=== PATIENT | male | born 1990 | race Hispanic/Latino ===

== ENCOUNTER 2016-07-05 21:36 | Emergency (ER) | payer OTHER ==
[~2016-07-05] VITALS: Ht 160 cm; Wt 57.6 kg
[~2016-07-05 21:36] MED LIST: ABILIFY 10 MG10 MG PO; ABILIFY10 M1 PO; AMLODIPINE10 MG PO; BENADRYL25 MG PO; DIPHENHYDRAMINE50 M1 PO; FERROUS SULFAT325 M1 PO; GABAPENTIN300 MG PO; GABAPENTIN400 MG PO; IMODIUM2 MG PO; LANTUS SOLOS100 U/ML SC; LANTUS100 U/ML SC; LASIX20 MG PO; LEVEMIR 10100 UNITS/ SC; LEVEMIR FLEX100 U/ML SC; LEVEMIR100 UNIT/1 SC; LISINOPRIL10 MG PO; LISINOPRIL40 M1 PO; LISINOPRIL40 MG PO; LOSARTAN POTASS50 M1 PO; LYRICA75 M1 PO; LYRICA75 MG PO; NEURONTIN400 M1 PO; NEURONTIN800 M1 PO; NEXIUM 40MG40 MG PO; NEXIUM40 M1 PO; NOVOLOG 10300 UNITS/; NOVOLOG 10300 UNITS/ SC; NOVOLOG MI300 UNITS/ SC; NOVOLOG100 U/ML SC; NOVOLOG100 UNIT/2 SC; ONDANSETRON2 MG/ML IV; OXY IR5 MG PO; OXYCONTIN10 MG PO; PERCOCET 10-321 EACH PO; PERCOCET 325 MG1 TA2 PO; PERCOCET 325 MG1 TAB PO; PERCOCET 5-3251 EACH PO; PRILOSEC OTC20 MG PO; PRINIVIL 5MG5 MG PO; TOPROL XL25 M1 PO; VIBRAMYCIN100 MG PO; ZOFRAN 4 MG TABL4 MG PO; ZOFRAN ODT4 M1 SL; ZOFRAN ODT4 MG PO; ZOFRAN ODT4 MG SL; ZOFRAN4 M1 SL
--- NOTE | 2016-07-05 21:41 | ED AMS/SEIZURE/WEAK/DIZZY ---
History of Present Illness General Chief Complaint: General Adult Stated Complaint: HIGH BLOOD SUGAR PER PT Source: patient Exam Limitations: no limitations Vital Signs & Intake/Output Vital Signs & Intake/Output Vital Signs Date Time Temp Pulse Resp B/P Pulse O2 O2 Flow FiO2 Ox Delivery Rate 07/06 0017 98.0 68 18 139/92 100 Room Air 07/05 2151 98.9 64 16 142/99 100 Room Air ED Intake and Output 07/06 0000 07/05 1200 Intake Total 1000 Output Total Balance 1000 Intake, IV 1000 Patient 127 lb Weight Allergies Coded Allergies: adhesive (HIVES 12/17/15) baclofen (NAUSEA 12/17/15) codeine (VOMITING 12/17/15) duloxetine (From CYMBALTA) (N/V 12/17/15) ketorolac (From TORADOL) (SUICIDAL THOUGHTS 12/17/15) metoclopramide (From REGLAN) (DYSTONIA 12/17/15) morphine (HIVES, VOMITING 12/17/15) prochlorperazine (From COMPAZINE) (DYSTONIA 12/17/15) propoxyphene (VOMITING 12/17/15) tramadol (SUICIDAL THOUGHTS 12/17/15) Uncoded Allergies: "ALL TRANSDERMAL PATCHES (Intermediate, HIVES 08/11/14) Reconcile Medications Aripiprazole (Abilify) 10 MG TABLET 0.5 TAB PO DAILY MENTAL HEALTH (Reported) Diphenhydramine HCl 50 MG CAPSULE 1 CAP PO QPM FOLICULITIS (Reported) Diphenhydramine HCl (Benadryl) 25 MG CAPSULE 1-2 CAP PO DAILY PRN folliculitis Doxycycline Hyclate (Vibramycin) 100 MG CAPSULE 1 CAP PO BID cellulitis Esomeprazole (Nexium) 40 MG CAPSULE.DR 1 CAP PO DAILY ACID REFLUX (Reported) Gabapentin (Neurontin) 400 MG CAPSULE 2 CAP PO TID NERVE PAIN (Reported) Insulin Aspart (Novolog) 100 UNIT/1 ML VIAL 0 UNITS SC SEE ADMIN CRITERIA DIABETES Sliding scale Blood sugar Before Meals At bedtime Less than 80mg/dL 0 units 0 units 80-150mg/dl 4 units 0 units 151-200mg/dl 6 units 0 units 201-250mg/dl 8 units 0 units 251-300mg/dl 10 units 2 units 301-350mg/dl 12 units 3 units 351-400mg/dl 14 units 4 units > 400mg/dl 16 units and CALL MD Insulin Detemir (Levemir) 100 UNIT/ML VIAL 15 UNIT SC BID DM (Reported) Insulin Glargine,Hum.rec.anlog (Lantus Solostar) 100 UNIT/ML (3 ML) INSULN.PEN 10 UNIT SC BID DIABETES ICD 10 E10... PLEASE GIVE WITH NEEDLES AND LANCETS. Insulin Lispro (Humalog Kwikpen U-100) 100 UNIT/ML INSULN.PEN 8 U SC QA DIABETES ICD 10 E10... PLEASE GIVE WITH LANCETS AND NEEDLES Metoprolol Succ XL (Toprol XL) 25 MG TAB 0.5 TAB PO DAILY HTN (Reported) Ondansetron (Zofran Odt) 4 MG TAB.RAPDIS 1 TAB SL Q6P PRN NAUSEA/VOMITING Oxycodone HCl/Acetaminophen (Percocet 10-325 MG Tablet) 10 MG-325 MG TABLET 1 TAB PO 4 TIMES/DAY PRN pain TEN... [id number] Oxycodone HCl/Acetaminophen (Percocet 10-325 MG Tablet) 1 EACH TABLET 1 TAB PO Q6 PRN PAIN Oxycodone HCl/Acetaminophen (Percocet 5-325 MG Tablet) 5 MG-325 MG TABLET 1-2 TAB PO BID PRN pain Pregabalin (Lyrica) 75 MG CAPSULE 1 CAP PO TID NERVE PAIN (Reported) Triage Nurses Notes Reviewed? yes Onset: Gradual Duration: day(s): Timing: recent history Injury Environment: home Severity: moderate Modifying Factors: Worsens With: other (with vomiting, diarrhea). Associated Symptoms: weakness, chronic pain. HPI: 26 yo gentleman h/o of diabetes, presents with nausea, vomiting, diarrhea in context of him running out of his levamir and not having any of his chronic pain medications. He notes that his doctor has recently changed and he is unable to get his percocet and insulin regularly. The medics noted that his sugar was 549 en route. He notes no abdominal pain, dysuria, fever, chills. He is otherwise well. Past History Travel History Traveled to [place] past 21 day No Medical History Any Pertinent Medical History? 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 MOTHER (IDDM). FH: HTN (hypertension) GERD Hx Contributory? No Review of Systems Review of Systems Constitutional: Reports: no symptoms. EENTM: Reports: no symptoms. Respiratory: Reports: no symptoms. Cardiovascular: Reports: no symptoms. GI: Reports: no symptoms. Genitourinary: Reports: no symptoms. Musculoskeletal: Reports: no symptoms. Skin: Reports: no symptoms. Neurological/Psychological: Reports: no symptoms. Hematologic/Endocrine: Reports: no symptoms. Immunologic/Allergic: Reports: no symptoms. All Other Systems: Reviewed and Negative Physical Exam Physical Exam General Appearance: well developed/nourished, mild distress Head: atraumatic, normal appearance Eyes: Bilateral: normal appearance. Ears, Nose, Throat: normal pharynx, normal ENT inspection Neck: normal inspection, supple, full range of motion Respiratory: normal breath sounds, chest non-tender, no respiratory distress, quiet respiration, lungs clear Cardiovascular: regular rate/rhythm Gastrointestinal: normal bowel sounds, soft, non-tender, no organomegaly Back: normal inspection Extremities: normal range of motion, multiple ulcerations on hands/knuckles. no obvious infection Neurologic/Psych: no motor/sensory deficits, awake, alert, oriented x 3 Skin: intact, normal color, warm/dry Core Measures ACS in differential dx? No CVA/TIA Diagnosis: No Severe Sepsis Present: No Septic Shock Present: No Progress Differential Diagnosis: dka vs hhnk vs gastroenteritis vs other. Plan of Care: Orders Procedure Date/time Status MIXED VENOUS BLOOD GAS (GEN) 07/05 2141 Active LIPASE 07/05 2141 Complete COMPREHENSIVE METABOLIC PANEL 07/05 2141 Complete CBC WITHOUT DIFFERENTIAL 07/05 2141 Complete ACETONE 07/05 2141 Complete Current Medications Sig/Ade Start time Last Medication Dose Stop Time Status Admin Insulin Human Regular 10 UNITS ONCE ONE 07/05 2144 CAN (Novolin R Inj) 07/05 2145 Laboratory Tests 07/05/16 2223: Anion Gap 18 H, Estimated GFR > 60, BUN/Creatinine Ratio 24.5, Glucose 284 H, Calcium 9.7, Total Bilirubin 0.4, AST 120 H, ALT 141 H, Alkaline Phosphatase 352 H, Total Protein 8.5 H, Albumin 4.7, Globulin 3.8, Albumin/Globulin Ratio 1.2, Lipase 18 L, CBC w Diff NO MAN DIFF REQ, RBC 4.48 L, MCV 77.0 L, MCH 25.4 L, RDW 14.3, MPV 7.6, Gran % 59.6, Lymphocytes % 32.8, Monocytes % 4.2, Eosinophils % 2.5, Basophils % 0.9, Absolute Granulocytes 4.6, Absolute Lymphocytes 2.5, Absolute Monocytes 0.3, Absolute Eosinophils 0.2, Absolute Basophils 0.1, PUBS MCHC 33.0, Acetone Level NEGATIVE Initial ED EKG: none Departure Departure Disposition: HOME OR SELF CARE Condition: Stable Clinical Impression Primary Impression: Hyperglycemia Secondary Impressions: Nausea & vomiting Referrals: VANESA MANZANO-C,MAIA (PCP/Family) Departure Forms: Customer Survey General Discharge Information Prescriptions: Current Visit Scripts Insulin Lispro (Humalog Kwikpen U-100) 8 U SC QAC #1 PEN Ref 3 ICD 10 E10... PLEASE GIVE WITH LANCETS AND NEEDLES Insulin Glargine,Hum.rec.anlog (Lantus Solostar) 10 UNIT SC BID #15 ML Ref 3 ICD 10 E10... PLEASE GIVE WITH NEEDLES AND LANCETS. Oxycodone HCl/Acetaminophen (Percocet 10-325 MG Tablet) 1 TAB PO 4 TIMES/DAY PRN pain #10 TAB TEN... [id number] Comments 07/06/16, 0:01... pt feeling better. labs benign, no ketones, glucose in 200's. Pt safe for discharge. An element of his symptoms is likely running out of his insulin and pain medications. [facility].
[2016-07-05 22:30] LABS: ABSOLUTE BASOPHIL COUNT 0.1 /CUMM (0.0-0.2); ABSOLUTE EOSINOPHIL COUNT 0.2 /CUMM (0.0-0.7); ABSOLUTE GRANULOCYTE CT 4.6 /CUMM (1.4-6.5); ABSOLUTE LYMPH COUNT 2.5 /CUMM (1.2-3.4); ABSOLUTE MONOCYTE COUNT 0.3 /CUMM (0.10-0.60); BASOPHIL % 0.9 % (0.0-2.0); EOSINOPHIL % 2.5 % (0-5); GRANULOCYTE % 59.6 % (42.2-75.2); HEMATOCRIT 34.5 % (42-52); MEAN CORPUSCULAR HGB 25.4 PG (27.0-31.0); MEAN PLATELET VOLUME 7.6 FL (7.4-10.4); PLATELET COUNT 479 /CUMM (130-400); RBC DISTRIBUTION WIDTH 14.3 % (11.5-14.5); RED BLOOD CELL CT 4.48 /CUMM (4.70-6.10); WHITE BLOOD CELL COUNT 7.7 /CUMM (4.8-10.8)
[2016-07-05] MEDS ORDERED: HUMALOG KW100 UNIT/1 SC (23:54)
[2016-07-05] MEDS ORDERED: LANTUS SOL100 UNIT/1 SC (23:54)
[2016-07-05] MEDS ORDERED: PERCOCET 10-321 EACH PO (23:54)
[2016-07-06 00:17] VITALS: BP 139/92
== END 2016-07-06 00:17 ==
LOC: ERH 21:36
PROVIDERS: Pediatrics
DX: E10.65 Type 1 diabetes mellitus with hyperglycemia (principal); R11.2 Nausea with vomiting, unspecified
CPT/HCPCS: 96372; 96374; 96375; 96376; J1200; J2405

== ENCOUNTER 2016-07-15 15:04 | Emergency (ER) | payer OTHER ==
[~2016-07-15] VITALS: Ht 165.1 cm; Wt 59.0 kg
[~2016-07-15 15:04] MED LIST changes: +HUMALOG KW100 UNIT/1 SC; +LANTUS SOL100 UNIT/1 SC
--- NOTE | 2016-07-15 15:39 | ED GI/GU/ABDOMINAL COMPLAINT ---
History of Present Illness General Chief Complaint: Nausea, Vomiting, Diarrhea Stated Complaint: NVD/CP "PAIN ALL OVER" Source: patient, old records Exam Limitations: no limitations Vital Signs & Intake/Output Vital Signs & Intake/Output Vital Signs Date Time Temp Pulse Resp B/P Pulse O2 O2 Flow FiO2 Ox Delivery Rate 07/15 1848 97.6 103 18 179/108 99 Room Air 07/15 1600 96.5 109 20 189/93 99 Room Air Allergies Coded Allergies: adhesive (HIVES 12/17/15) baclofen (NAUSEA 12/17/15) codeine (VOMITING 12/17/15) duloxetine (From CYMBALTA) (N/V 12/17/15) ketorolac (From TORADOL) (SUICIDAL THOUGHTS 12/17/15) metoclopramide (From REGLAN) (DYSTONIA 12/17/15) morphine (HIVES, VOMITING 12/17/15) prochlorperazine (From COMPAZINE) (DYSTONIA 12/17/15) propoxyphene (VOMITING 12/17/15) tramadol (SUICIDAL THOUGHTS 12/17/15) Uncoded Allergies: "ALL TRANSDERMAL PATCHES (Intermediate, HIVES 08/11/14) Reconcile Medications Aripiprazole (Abilify) 10 MG TABLET 0.5 TAB PO DAILY MENTAL HEALTH (Reported) Diphenhydramine HCl 50 MG CAPSULE 1 CAP PO QPM FOLICULITIS (Reported) Diphenhydramine HCl (Benadryl) 25 MG CAPSULE 1-2 CAP PO DAILY PRN folliculitis Doxycycline Hyclate (Vibramycin) 100 MG CAPSULE 1 CAP PO BID cellulitis Esomeprazole (Nexium) 40 MG CAPSULE.DR 1 CAP PO DAILY ACID REFLUX (Reported) Gabapentin (Neurontin) 400 MG CAPSULE 2 CAP PO TID NERVE PAIN (Reported) Insulin Aspart (Novolog) 100 UNIT/1 ML VIAL 0 UNITS SC SEE ADMIN CRITERIA DIABETES Sliding scale Blood sugar Before Meals At bedtime Less than 80mg/dL 0 units 0 units 80-150mg/dl 4 units 0 units 151-200mg/dl 6 units 0 units 201-250mg/dl 8 units 0 units 251-300mg/dl 10 units 2 units 301-350mg/dl 12 units 3 units 351-400mg/dl 14 units 4 units > 400mg/dl 16 units and CALL MD Insulin Detemir (Levemir) 100 UNIT/ML VIAL 15 UNIT SC BID DM (Reported) Metoprolol Succ XL (Toprol XL) 25 MG TAB 0.5 TAB PO DAILY HTN (Reported) Ondansetron (Zofran Odt) 4 MG TAB.RAPDIS 1 TAB PO Q6 PRN NAUSEA Ondansetron (Zofran Odt) 4 MG TAB.RAPDIS 1 TAB PO Q6 PRN NAUSEA Oxycodone HCl/Acetaminophen (Percocet 5-325 MG Tablet) 5 MG-325 MG TABLET 1 TAB PO Q4-6 PRN PAIN Oxycodone HCl/Acetaminophen (Percocet 5-325 MG Tablet) 5 MG-325 MG TABLET 1 TAB PO Q4-6 PRN PAIN Oxycodone HCl/Acetaminophen (Percocet 10-325 MG Tablet) 1 EACH TABLET 1 TAB PO Q6 PRN PAIN Pregabalin (Lyrica) 75 MG CAPSULE 1 CAP PO TID NERVE PAIN (Reported) Triage Nurses Notes Reviewed? yes Onset: Abrupt Duration: day(s): (2) Timing: multiple episodes today Quality/Severity: severe Severity Numbers: 10 Location: generalized abdomen Activities at Onset: NAUSEA, VOMITING No Modifying Factors: none Associated Symptoms: abdominal pain, nausea/vomiting HPI: 26 year old male with history of IDDM who presents to the ER with abdominal pain , nausea, vomiting for the past 2 days. No fever or chills. Multiple episodes at home. He states his girlfriend was at home with similar symptoms and that she had 'the bug'. No fever or chills. States his blood sugar has been running high. Denies any recent admissions for DKA for the past 2 months. He has had a few ED visits for abdominal pain. Denies any illicit drug use. Multiple visile track benitez on upper extremities. Past History Travel History Traveled to [place] past 21 day No Medical History Any Pertinent Medical History? 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 MOTHER (IDDM). FH: HTN (hypertension) GERD Hx Contributory? No Review of Systems Review of Systems Constitutional: Denies: chills, fever. EENTM: Reports: no symptoms. Respiratory: Denies: cough, short of breath. Cardiovascular: Denies: chest pain, palpitations. GI: Reports: abdominal pain, nausea, vomiting. Denies: diarrhea. Genitourinary: Denies: discharge, dysuria, frequency. Musculoskeletal: Reports: no symptoms. Skin: Reports: no symptoms. Neurological/Psychological: Reports: anxiety. Hematologic/Endocrine: Denies: bruising, bleeding, polyuria, polydipsia. Immunologic/Allergic: Denies: splenectomy. All Other Systems: Reviewed and Negative Physical Exam Physical Exam General Appearance: alert, awake, anxious, mild distress, thin Head: atraumatic, normal appearance Eyes: Bilateral: normal appearance, PERRL, EOMI. Ears, Nose, Throat, Mouth: hearing grossly normal, moist mucous membrane Neck: normal inspection, supple, full range of motion Respiratory: normal breath sounds, chest non-tender, no respiratory distress Cardiovascular: regular rate/rhythm Peripheral Pulses: 2+ radial (R), 2+ radial (L) Gastrointestinal: soft, tenderness (DIFFUSE) Back: normal range of motion, UPPER BACK EXCORIATION Extremities: TRACK BENITEZ UPPER EXTREMITIES Neurologic/Psych: no motor/sensory deficits, awake, alert, oriented x 3 Skin: intact, normal color, warm/dry Core Measures ACS in differential dx? No Severe Sepsis Present: No Septic Shock Present: No Progress Differential Diagnosis: DKA, HYPERGLYCEMIA, OPIATE DEPENDENCE, Plan of Care: Orders Procedure Date/time Status Add-on Test (ER Only) 07/15 1829 Active ETHANOL 07/15 1620 Complete URINE DRUGS OF ABUSE 07/15 1545 Complete MIXED VENOUS BLOOD GAS (GEN) 07/15 1537 Active URINALYSIS 07/15 1537 Complete TROPONIN LEVEL 07/15 1537 Complete COMPREHENSIVE METABOLIC PANEL 07/15 1537 Complete CBC WITHOUT DIFFERENTIAL 07/15 1537 Complete ACETONE 07/15 1537 Complete EKG 07/15 1526 Active Current Medications Sig/Ade Start time Last Medication Dose Stop Time Status Admin Promethazine HCl 25 MG ONCE ONE 07/15 1545 CAN (Phenergen) 07/15 1546 Laboratory Tests 07/15/16 1658: Urine Opiates Screen 2482.00 H, Methadone Screen < 40, Barbiturate Screen < 60, Ur Phencyclidine Scrn < 6.00, Amphetamines Screen < 100, U Benzodiazepines Scrn < 85, Urine Cocaine Screen < 50, Urine Cannabis Screen < 5.00, Urine Color YEL, Urine Clarity CLEAR, Urine pH 6.0, Ur Specific [place] 1.010, Urine Protein NEG, Urine Ketones 40 H, Urine Nitrite NEG, Urine Bilirubin NEG, Urine Urobilinogen 0.2, Ur Leukocyte Esterase NEG, Ur Microscopic EXAM NOT REQUIRED, Urine Hemoglobin NEG, Urine Glucose >=1000 H 07/15/16 1620: Anion Gap 16, Estimated GFR > 60, BUN/Creatinine Ratio 21.1, Glucose 431 H, Calcium 10.1, Total Bilirubin 0.7, AST 22, ALT 40, Alkaline Phosphatase 355 H, Troponin I < 0.01, Total Protein 7.9, Albumin 4.3, Globulin 3.6, Albumin/ Globulin Ratio 1.2, CBC w Diff NO MAN DIFF REQ, RBC 3.97 L, MCV 76.5 L, MCH 24.6 L, RDW 14.4, MPV 7.6, Gran % 73.7, Lymphocytes % 15.9 L, Monocytes % 5.2, Eosinophils % 4.6, Basophils % 0.6, Absolute Granulocytes 7.2 H, Absolute Lymphocytes 1.6, Absolute Monocytes 0.5, Absolute Eosinophils 0.4, Absolute Basophils 0.1, PUBS MCHC 32.2 L, Serum Alcohol < 10.0, Acetone Level POSITIVE AT 1:2 DIL 07/15/16 1615: Bicarbonate Actual 22, Mixed VBG pH 7.43 H, Mixed VBG pCO2 34 L, Mixed VBG O2 Saturation 45, Carboxyhemoglobin 2.9, O2 Concentration % R/A, Phlebotomy Draw Site VENOUS 07/15/16 1545: Serum Alcohol Cancelled LABS, IV FLUIDS, IV PHENERGEN ORDERED. ACCESS OBTAINED. IV ZOFRAN, IV TYLENOL ORDERED. NO VOMITING EPISODES IN THE ED. PATIENT IS NOT IN DKA. CONTINUES TO REQUEST IV PAIN MEDICAITONS. UTOX PENDING. PO DILAUDID, NS ORDERED. UTOX POSITIVE FOR SIGNIFICANT AMOUNT OF OPIATES. STILL IN PAIN REQUESTING PAIN MEDICATIONS. PO PERCOCET ORDERED. (NILSA NEW,SONI) Initial ED EKG: SINUS TACHYCARDIA Rhythm Strip: SINUS TACHYCARDIA Departure Departure Time of Disposition: 1912 Disposition: HOME OR SELF CARE Condition: Stable Clinical Impression Primary Impression: Hyperglycemia Secondary Impressions: Gastroenteritis, Narcotic dependence Referrals: VANESA VARGAS,MAIA (PCP/Family) Additional Instructions: FOLLOW UP WITH YOUR DOCTOR. TAKE YOUR INSULIN DIRECTED. TAKE THE ZOFRAN AND PERCOCET DIRECTED. Departure Forms: Customer Survey General Discharge Information Prescriptions: Current Visit Scripts Ondansetron (Zofran Odt) 1 TAB PO Q6 PRN NAUSEA #20 TAB Oxycodone HCl/Acetaminophen (Percocet 5-325 MG Tablet) 1 TAB PO Q4-6 PRN PAIN #10 TAB Ondansetron (Zofran Odt) 1 TAB PO Q6 PRN NAUSEA #20 TAB Oxycodone HCl/Acetaminophen (Percocet 5-325 MG Tablet) 1 TAB PO Q4-6 PRN PAIN #5 TAB
[2016-07-15 16:32] LABS: ABSOLUTE BASOPHIL COUNT 0.1 /CUMM (0.0-0.2); ABSOLUTE EOSINOPHIL COUNT 0.4 /CUMM (0.0-0.7); ABSOLUTE GRANULOCYTE CT 7.2 /CUMM (1.4-6.5); ABSOLUTE LYMPH COUNT 1.6 /CUMM (1.2-3.4); ABSOLUTE MONOCYTE COUNT 0.5 /CUMM (0.10-0.60); BASOPHIL % 0.6 % (0.0-2.0); EOSINOPHIL % 4.6 % (0-5); GRANULOCYTE % 73.7 % (42.2-75.2); HEMATOCRIT 30.3 % (42-52); MEAN CORPUSCULAR HGB 24.6 PG (27.0-31.0); MEAN CORPUSCULAR HGB CONC 32.2 G/DL (33.0-37.0); MEAN CORPUSCULAR VOLUME 76.5 FL (80.0-94.0); MEAN PLATELET VOLUME 7.6 FL (7.4-10.4); PLATELET COUNT 577 /CUMM (130-400); RBC DISTRIBUTION WIDTH 14.4 % (11.5-14.5); RED BLOOD CELL CT 3.97 /CUMM (4.70-6.10); WHITE BLOOD CELL COUNT 9.8 /CUMM (4.8-10.8)
[2016-07-15 18:48] VITALS: BP 179/108
[2016-07-15] MEDS ORDERED: PERCOCET 5-3251 EACH PO ×2 (19:16→19:20)
[2016-07-15] MEDS ORDERED: ZOFRAN ODT4 M1 PO ×2 (19:16→19:20)
== END 2016-07-15 19:28 ==
LOC: ERH 15:04
PROVIDERS: Emergency Medicine
DX: E10.65 Type 1 diabetes mellitus with hyperglycemia (principal); K52.9 Noninfective gastroenteritis and colitis, unspecified; F11.20 Opioid dependence, uncomplicated
CPT/HCPCS: 80307; 81003; 93005; 93010; 96361; 96372; 96374; 96375; G0480; J0131; J1815; J2405; J2550

== ENCOUNTER 2016-08-14 10:12 | Emergency (ER) | payer OTHER ==
[~2016-08-14] VITALS: Ht 165.1 cm; Wt 59.0 kg
[~2016-08-14 10:12] MED LIST changes: +ZOFRAN ODT4 M1 PO
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
[2016-08-14 13:25] LABS: ABSOLUTE BASOPHIL COUNT 0.1 /CUMM (0.0-0.2); ABSOLUTE EOSINOPHIL COUNT 0.1 /CUMM (0.0-0.7); ABSOLUTE GRANULOCYTE CT 6.1 /CUMM (1.4-6.5); ABSOLUTE LYMPH COUNT 1.3 /CUMM (1.2-3.4); ABSOLUTE MONOCYTE COUNT 0.3 /CUMM (0.10-0.60); BASOPHIL % 0.8 % (0.0-2.0); EOSINOPHIL % 1.3 % (0-5); GRANULOCYTE % 78.1 % (42.2-75.2); HEMATOCRIT 36.5 % (42-52); MEAN CORPUSCULAR HGB 23.8 PG (27.0-31.0); MEAN CORPUSCULAR HGB CONC 31.9 G/DL (33.0-37.0); MEAN CORPUSCULAR VOLUME 74.5 FL (80.0-94.0); MEAN PLATELET VOLUME 8.6 FL (7.4-10.4); PLATELET COUNT 441 /CUMM (130-400); RED BLOOD CELL CT 4.89 /CUMM (4.70-6.10); WHITE BLOOD CELL COUNT 7.9 /CUMM (4.8-10.8)
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
[2016-08-14 14:13] VITALS: BP 138/90
[2016-08-14] MEDS ORDERED: LEVSIN-SL0.125 MG SL (14:32)
[2016-08-14] MEDS ORDERED: IMODIUM A-D2 M1 PO (14:32)
[2016-08-14] MEDS ORDERED: ZOFRAN ODT4 M1 SL (14:32)
== END 2016-08-14 14:43 | disposition left against medical advice (07) ==
LOC: ERH 10:12
PROVIDERS: Emergency Medicine
DX: E10.10 Type 1 diabetes mellitus with ketoacidosis without coma (principal); R11.2 Nausea with vomiting, unspecified; R19.7 Diarrhea, unspecified; S61.207A Unspecified open wound of left little finger without damage to nail, initial encounter
CPT/HCPCS: 73140-LT; 96374; 96375; 99291; J0131; J1200; J2405

== ENCOUNTER 2016-09-25 13:08 | Emergency (ER) | payer OTHER ==
[~2016-09-25] VITALS: Ht 165.1 cm; Wt 56.7 kg
[~2016-09-25 13:08] MED LIST changes: +IMODIUM A-D2 M1 PO; +LEVSIN-SL0.125 MG SL
[2016-09-25 13:22] VITALS: BP 105/61
--- NOTE | 2016-09-25 13:25 | ED GI/GU/ABDOMINAL COMPLAINT ---
History of Present Illness General Chief Complaint: General Adult Stated Complaint: BIBA FOR HIGH BLOOD SUGAR,VOMITING Source: patient Exam Limitations: no limitations Vital Signs & Intake/Output Vital Signs & Intake/Output Vital Signs Date Time Temp Pulse Resp B/P Pulse O2 O2 Flow FiO2 Ox Delivery Rate 09/25 1322 96.2 92 17 105/61 100 Room Air Allergies Coded Allergies: adhesive (HIVES 12/17/15) baclofen (NAUSEA 12/17/15) codeine (VOMITING 12/17/15) duloxetine (From CYMBALTA) (N/V 12/17/15) ketorolac (From TORADOL) (SUICIDAL THOUGHTS 12/17/15) metoclopramide (From REGLAN) (DYSTONIA 12/17/15) morphine (HIVES, VOMITING 12/17/15) prochlorperazine (From COMPAZINE) (DYSTONIA 12/17/15) propoxyphene (VOMITING 12/17/15) tramadol (SUICIDAL THOUGHTS 12/17/15) Uncoded Allergies: "ALL TRANSDERMAL PATCHES (Intermediate, HIVES 08/11/14) Reconcile Medications Aripiprazole (Abilify) 10 MG TABLET 0.5 TAB PO DAILY MENTAL HEALTH (Reported) Esomeprazole (Nexium) 40 MG CAPSULE.DR 1 CAP PO DAILY ACID REFLUX (Reported) Gabapentin (Neurontin) 400 MG CAPSULE 2 CAP PO TID NERVE PAIN (Reported) Hyoscyamine Sulfate (Levsin-Sl) 0.125 MG TAB.SUBL 1-2 TAB SL Q4P PRN abdominal cramps Insulin Aspart (Novolog) 100 UNIT/1 ML VIAL 0 UNITS SC SEE ADMIN CRITERIA DIABETES Sliding scale Blood sugar Before Meals At bedtime Less than 80mg/dL 0 units 0 units 80-150mg/dl 4 units 0 units 151-200mg/dl 6 units 0 units 201-250mg/dl 8 units 0 units 251-300mg/dl 10 units 2 units 301-350mg/dl 12 units 3 units 351-400mg/dl 14 units 4 units > 400mg/dl 16 units and CALL Insulin Detemir (Levemir) 100 UNIT/ML VIAL 15 UNIT SC BID DM (Reported) Loperamide HCl (Imodium A-D) 2 MG TABLET 0 PO SEE ADMIN CRITERIA PRN diarrhea 1 tab after each loose stool up to 7 per day Metoprolol Succ XL (Toprol XL) 25 MG TAB 0.5 TAB PO DAILY HTN (Reported) Ondansetron (Zofran Odt) 4 MG TAB.RAPDIS 1 TAB PO Q6 PRN NAUSEA Ondansetron (Zofran Odt) 4 MG TAB.RAPDIS 1 TAB SL TID PRN nausea Oxycodone HCl/Acetaminophen (Percocet 5-325 MG Tablet) 5 MG-325 MG TABLET 1 TAB PO Q4-6 PRN PAIN Pregabalin (Lyrica) 75 MG CAPSULE 1 CAP PO TID NERVE PAIN (Reported) Triage Note: 26 MALE BIBA FROM HOME FOR DIABETIC CRISIS. PER EMS PT VITALS WAS WITHIN RANGE AND BS ON SCENE WAS 173. PT ARRIVES A/O AND STS HE HAS N/V/D AND PAIN ALL OVER. PT ALSO STS HIS BS AT HOME READ HIGH AND HE TOOK 15 UNITS OF HIS INSULIN (NOVOLOG) AT HOME. PT ARRIVES AND INSULIN IS AND NO VITALS ALSO WITHIN RANGE AND JOE CLAUDIO NOTIFIED Triage Nurses Notes Reviewed? yes HPI: This patient is a 26-year-old male with past medical history including diabetes who presented to the emergency department today accompanied by his significant other for evaluation of nausea, vomiting, and abdominal pain. The patient reported that he took his blood sugar level this morning and his machine read, "high." He took his insulin and reported that it came down into the 170s. He reported that he has vomited, "numerous times," and had diarrhea, "numerous times." He reported associated nausea and pain, "all over." He is requesting medication for pain. The patient denied any fevers, chills, chest pain, difficulty breathing, or any urinary symptoms. No blood in the vomitus or the stool. (SHANON OLVERA,MARCI) Past History Travel History Traveled to [place] past 21 day No Medical History Any Pertinent Medical History? 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 MOTHER (IDDM). FH: HTN (hypertension) GERD Hx Contributory? No (MARCI CLAUDIO PA-C) Review of Systems Review of Systems Constitutional: Reports: no symptoms. EENTM: Reports: no symptoms. Respiratory: Reports: no symptoms. Cardiovascular: Reports: no symptoms. GI: Reports: see HPI. Genitourinary: Reports: no symptoms. Musculoskeletal: Reports: no symptoms. Skin: Reports: no symptoms. Neurological/Psychological: Reports: no symptoms. Hematologic/Endocrine: Reports: see HPI. All Other Systems: Reviewed and Negative (MARCI CLAUDIO PA-C) Physical Exam Physical Exam Gastrointestinal: normal bowel sounds, soft, non-tender, no organomegaly, no rebound or guarding. No peritoneal signs. Nondistended. No masses appreciated Comments: Well-developed well-nourished person in no acute distress HEENT: Normal EENT exam, head normocephalic, moist mucous membranes Pupils equally round and reactive to light. Neck: Supple, no lymphadenopathy Back: Normal inspection Cardiovascular: Regular rate and rhythm with no murmurs, rubs or gallops Respiratory: Chest nontender. No respiratory distress. Breath sounds clear to auscultation bilaterally Extremity: Normal and equal pulses Neuro: Alert oriented x3, a ugh XII grossly intact. Skin: No appreciable rash on exposed skin, skin is warm and dry. Psych: Mood and affect is normal Core Measures ACS in differential dx? No Severe Sepsis Present: No Septic Shock Present: No (MARCI CLAUDIO PA-C) Progress Differential Diagnosis: appendicitis, biliary colic, bowel obstruction, colon cancer, cholecystitis, gastritis, ischemic bowel, inflamm bowel dis, pancreatitis, perforated viscous, DKA, hyperglycemia, hypoglycemia Plan of Care: Orders Procedure Date/time Status Regular Diet 09/25 D Active COMPREHENSIVE METABOLIC PANEL 09/25 1325 Complete CBC WITHOUT DIFFERENTIAL 09/25 1325 Complete ACETONE 09/25 1325 Complete FingerStick- Glucose 09/25 1317 Active Laboratory Tests 09/25/16 1353: Anion Gap 17 H, Estimated GFR > 60, BUN/Creatinine Ratio 26.7 H, Glucose 133 H, Calcium 10.6 H, Total Bilirubin 0.6, AST 52, ALT 62, Alkaline Phosphatase 396 H, Total Protein 9.6 H, Albumin 4.9, Globulin 4.7 H, Albumin/Globulin Ratio 1.0 L, CBC w Diff NO MAN DIFF REQ, RBC 5.09, MCV 74.7 L, MCH 23.7 L, RDW 19.4 H, MPV 7.1 L, Gran % 67.4, Lymphocytes % 25.0, Monocytes % 3.6, Eosinophils % 2.8, Basophils % 1.2, Absolute Granulocytes 5.9, Absolute Lymphocytes 2.2, Absolute Monocytes 0.3, Absolute Eosinophils 0.2, Absolute Basophils 0.1, PUBS MCHC 31.6 L, Acetone Level NEGATIVE Initial ED EKG: none (SHANON OLVERA,MARCI) Departure Departure Disposition: HOME OR SELF CARE Condition: Stable Clinical Impression Primary Impression: Hyperglycemia Referrals: VANESA VARGAS,MAIA (PCP/Family) Additional Instructions: Please call your primary care physician to discuss further pain management. Return for any worsening symptoms or concerns. Departure Forms: Customer Survey General Discharge Information (MARCI CLAUDIO PA-C) PA/MARKETING ANALYST Co-Sign Statement Statement: ED Attending supervision documentation- [] I saw and evaluated the patient. I have also reviewed all the pertinent lab results and diagnostic results. I agree with the findings and the plan of care as documented in the PA's/MARKETING ANALYST's documentation. [X] I have reviewed the ED Record and agree with the PA's/MARKETING ANALYST's documentation. [] Additions or exceptions (if any) to the PAs/MARKETING ANALYST's note and plan are summarized below: [] (GERARDO NEW,DANIEL Ghotra)
[2016-09-25 14:11] LABS: ABSOLUTE BASOPHIL COUNT 0.1 /CUMM (0.0-0.2); ABSOLUTE EOSINOPHIL COUNT 0.2 /CUMM (0.0-0.7); ABSOLUTE GRANULOCYTE CT 5.9 /CUMM (1.4-6.5); ABSOLUTE LYMPH COUNT 2.2 /CUMM (1.2-3.4); ABSOLUTE MONOCYTE COUNT 0.3 /CUMM (0.10-0.60); BASOPHIL % 1.2 % (0.0-2.0); EOSINOPHIL % 2.8 % (0-5); GRANULOCYTE % 67.4 % (42.2-75.2); MEAN CORPUSCULAR HGB 23.7 PG (27.0-31.0); MEAN CORPUSCULAR HGB CONC 31.6 G/DL (33.0-37.0); MEAN CORPUSCULAR VOLUME 74.7 FL (80.0-94.0); MEAN PLATELET VOLUME 7.1 FL (7.4-10.4); PLATELET COUNT 515 /CUMM (130-400); RBC DISTRIBUTION WIDTH 19.4 % (11.5-14.5); RED BLOOD CELL CT 5.09 /CUMM (4.70-6.10); WHITE BLOOD CELL COUNT 8.8 /CUMM (4.8-10.8)
== END 2016-09-25 15:46 ==
LOC: ERH 13:08
PROVIDERS: Physician Assistant
DX: E10.65 Type 1 diabetes mellitus with hyperglycemia (principal); I10 Essential (primary) hypertension
CPT/HCPCS: 96372; J2405

== ENCOUNTER 2016-10-23 11:16 | Emergency (ER) | payer OTHER ==
[~2016-10-23] VITALS: Ht 165.1 cm; Wt 59.0 kg
[2016-10-23 11:39] VITALS: BP 124/86
[2016-10-23 12:31] LABS: ABSOLUTE BASOPHIL COUNT 0 /CUMM (0.0-0.2); ABSOLUTE EOSINOPHIL COUNT 0.2 /CUMM (0.0-0.7); ABSOLUTE GRANULOCYTE CT 5.3 /CUMM (1.4-6.5); ABSOLUTE LYMPH COUNT 1.8 /CUMM (1.2-3.4); ABSOLUTE MONOCYTE COUNT 0.4 /CUMM (0.10-0.60); BASOPHIL % 0.6 % (0.0-2.0); EOSINOPHIL % 2.7 % (0-5); GRANULOCYTE % 68.6 % (42.2-75.2); HEMATOCRIT 32.6 % (42-52); MEAN CORPUSCULAR HGB 24.1 PG (27.0-31.0); MEAN CORPUSCULAR HGB CONC 32.1 G/DL (33.0-37.0); MEAN PLATELET VOLUME 7.7 FL (7.4-10.4); PLATELET COUNT 434 /CUMM (130-400); RED BLOOD CELL CT 4.35 /CUMM (4.70-6.10); WHITE BLOOD CELL COUNT 7.8 /CUMM (4.8-10.8)
--- NOTE | 2016-10-23 12:43 | ED GI/GU/ABDOMINAL COMPLAINT ---
History of Present Illness General Chief Complaint: General Adult Stated Complaint: N/V/D, ABDOMINAL PAIN,HYPERGLYCEMIA Source: patient, old records, EMS, [facility] Exam Limitations: no limitations Vital Signs & Intake/Output Vital Signs & Intake/Output Vital Signs Date Time Temp Pulse Resp B/P B/P Pulse O2 O2 Flow FiO2 Mean Ox Delivery Rate 10/23 1139 98.0 105 20 124/86 98 Room Air Allergies Coded Allergies: adhesive (HIVES 12/17/15) baclofen (NAUSEA 12/17/15) codeine (VOMITING 12/17/15) duloxetine (From CYMBALTA) (N/V 12/17/15) ketorolac (From TORADOL) (SUICIDAL THOUGHTS 12/17/15) metoclopramide (From REGLAN) (DYSTONIA 12/17/15) morphine (HIVES, VOMITING 12/17/15) prochlorperazine (From COMPAZINE) (DYSTONIA 12/17/15) propoxyphene (VOMITING 12/17/15) tramadol (SUICIDAL THOUGHTS 12/17/15) Uncoded Allergies: "ALL TRANSDERMAL PATCHES (Intermediate, HIVES 08/11/14) Reconcile Medications Aripiprazole (Abilify) 10 MG TABLET 0.5 TAB PO DAILY MENTAL HEALTH (Reported) Esomeprazole (Nexium) 40 MG CAPSULE.DR 1 CAP PO DAILY ACID REFLUX (Reported) Gabapentin (Neurontin) 400 MG CAPSULE 2 CAP PO TID NERVE PAIN (Reported) Hyoscyamine Sulfate (Levsin-Sl) 0.125 MG TAB.SUBL 1-2 TAB SL Q4P PRN abdominal cramps Insulin Aspart (Novolog) 100 UNIT/1 ML VIAL 0 UNITS SC SEE ADMIN CRITERIA DIABETES Sliding scale Blood sugar Before Meals At bedtime Less than 80mg/dL 0 units 0 units 80-150mg/dl 4 units 0 units 151-200mg/dl 6 units 0 units 201-250mg/dl 8 units 0 units 251-300mg/dl 10 units 2 units 301-350mg/dl 12 units 3 units 351-400mg/dl 14 units 4 units > 400mg/dl 16 units and CALL MD Insulin Detemir (Levemir) 100 UNIT/ML VIAL 15 UNIT SC BID DM (Reported) Loperamide HCl (Imodium A-D) 2 MG TABLET 0 PO SEE ADMIN CRITERIA PRN diarrhea 1 tab after each loose stool up to 7 per day Metoprolol Succ XL (Toprol XL) 25 MG TAB 0.5 TAB PO DAILY HTN (Reported) Ondansetron (Zofran Odt) 4 MG TAB.RAPDIS 1 TAB PO Q6 PRN NAUSEA Ondansetron (Zofran Odt) 4 MG TAB.RAPDIS 1 TAB SL TID PRN nausea Oxycodone HCl/Acetaminophen (Percocet 5-325 MG Tablet) 5 MG-325 MG TABLET 1 TAB PO Q4-6 PRN PAIN Pregabalin (Lyrica) 75 MG CAPSULE 1 CAP PO TID NERVE PAIN (Reported) Triage Note: PT BIBA FROM HOME FOR HYPERGLYCEMIA AND PAIN ALL OVER. FINGERSTICK >500 IN TRIAGE. TAKEN TO ROOM 9 VIA W/C. Triage Nurses Notes Reviewed? yes Onset: 4 days Duration: day(s):, continues in ED, waxing and waning Timing: recent history Quality/Severity: aching, cramping, moderate, severe, vomiting Location: generalized abdomen Radiation: no radiation Activities at Onset: eating Prior Abdominal Problems: similar symptoms Past Sexual History: Unobtainable at this time Modifying Factors: Worsens With: eating. Associated Symptoms: abdominal pain, loss of appetite, nausea/vomiting, rash, weakness HPI: 4 days prior to admission patient complains of recurrent nausea vomiting moderate to severe generalized body pain unable to tolerate food or fluid. He has had folliculitis in his bearded area. He denies fever chills chest pain cough shortness of breath headache dysuria. Past History Travel History Traveled to [place] past 21 day No Medical History Any Pertinent Medical History? 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 MOTHER (IDDM). FH: HTN (hypertension) GERD Hx Contributory? No Review of Systems Review of Systems Constitutional: Reports: see HPI, malaise, weakness. EENTM: Reports: no symptoms. Respiratory: Reports: no symptoms. Cardiovascular: Reports: no symptoms. GI: Reports: see HPI, abdominal pain, nausea, vomiting. Genitourinary: Reports: no symptoms. Musculoskeletal: Reports: no symptoms. Skin: Reports: see HPI, rash. Neurological/Psychological: Reports: no symptoms. Hematologic/Endocrine: Reports: no symptoms. Immunologic/Allergic: Reports: no symptoms. All Other Systems: Reviewed and Negative Physical Exam Physical Exam General Appearance: well developed/nourished, alert, awake, anxious, moderate distress, thin Head: atraumatic Eyes: Bilateral: normal appearance, PERRL, EOMI, normal inspection. Ears, Nose, Throat, Mouth: hearing grossly normal, dry mucous membranes Neck: normal inspection, supple, full range of motion, normal alignment Respiratory: normal breath sounds, chest non-tender, no respiratory distress, quiet respiration, lungs clear Cardiovascular: regular rate/rhythm, normal peripheral pulses, norml femoral pulses equa Peripheral Pulses: 4+ carotid (R), 4+ carotid (L) Gastrointestinal: normal bowel sounds, soft, non-tender, no organomegaly Male Genitals: normal genitalia Back: normal inspection, normal range of motion Extremities: normal range of motion, no ligament instability Neurologic/Psych: no motor/sensory deficits, awake, alert, oriented x 3, normal gait, adult education manager II-XII nml as tested Skin: normal color, rash (folliculitis bearded area) Core Measures ACS in differential dx? No Severe Sepsis Present: No Septic Shock Present: No Progress Differential Diagnosis: gastritis, DKA Plan of Care: Orders Procedure Date/time Status MIXED VENOUS BLOOD GAS (GEN) 10/23 1205 Active LIPASE 10/23 1205 Complete COMPREHENSIVE METABOLIC PANEL 10/23 1205 Complete CBC WITHOUT DIFFERENTIAL 10/23 120 Complete ACETONE 10/23 120 Complete Laboratory Tests 10/23/16 1215: Bicarbonate Actual 15 L, Mixed VBG pH 7.26 L, Mixed VBG pCO2 34 L, Mixed VBG O2 Saturation 50 H, Carboxyhemoglobin 4.2, O2 Concentration % RA, O2 Delivery Method RA, Anion Gap 14, Estimated GFR > 60, BUN/Creatinine Ratio 32.5 H, Glucose 606 *H, Calcium 8.8, Total Bilirubin 0.3, AST 604 H, ALT 242 H, Alkaline Phosphatase 515 H, Total Protein 7.3, Albumin 3.8, Globulin 3.5, Albumin/Globulin Ratio 1.1, Lipase 38, CBC w Diff NO MAN DIFF REQ, RBC 4.35 L, MCV 75.0 L, MCH 24.1 L, RDW 19.0 H, MPV 7.7, Gran % 68.6, Lymphocytes % 23.2, Monocytes % 4.9, Eosinophils % 2.7, Basophils % 0.6, Absolute Granulocytes 5.3, Absolute Lymphocytes 1.8, Absolute Monocytes 0.4, Absolute Eosinophils 0.2, Absolute Basophils 0, PUBS MCHC 32.1 L, Phlebotomy Draw Site VENOUS, Acetone Level NEGATIVE Initial ED EKG: none Comments: Patient declined treatment reporting acetaminophen is not effective for his discomfort. Is made aware of risk complications of elevated blood sugar continued symptomatology he still continued to sign out AGAINST MEDICAL ADVICE Departure Departure Time of Disposition: 1245 Disposition: LEFT AGAINST MEDICAL ADVICE Condition: Stable Clinical Impression Primary Impression: Hyperglycemia due to type 1 diabetes mellitus Secondary Impressions: Nausea and vomiting in adult patient Referrals: MAIA ROSALES (PCP/Family) Departure Forms: Customer Survey General Discharge Information
== END 2016-10-23 12:58 | disposition left against medical advice (07) ==
LOC: ERH 11:16
PROVIDERS: Emergency Medicine
DX: E10.65 Type 1 diabetes mellitus with hyperglycemia (principal); R11.2 Nausea with vomiting, unspecified
CPT/HCPCS: 96374; J0131; J2405